=== PATIENT | male | born 1990 | race American Indian/Alaskan Native ===

== ENCOUNTER 2018-04-17 18:19 | Emergency (ER) | payer OTHER ==
[2018-04-17 18:26] VITALS: BP 148/85
--- NOTE | 2018-04-17 18:39 | Emergency Department Report ---
Blank Doc - Documentation Documentation: penile buring with urination. 2 days ago.
[2018-04-17 19:31] LABS: Bilirubin,Urine NEG (Negative); Blood,Urine NEG (Negative); Color,Urine Yellow (Yellow); Hyaline Casts,Urine 1 /LPF; Mucus,Urine 3+ /HPF; Protein,Urine <15 mg/dL mg/dL (Negative)
--- NOTE | 2018-04-17 21:11 | Emergency Department Report ---
Chief Complaint: Urogenital-Male Stated Complaint: BURNING WHILE HAVING SEX Time Seen by Provider: 04/17/18 18:36 - HPI History of Present Illness: This is a 27-year-old male presents ED today stating that his girlfriend was here earlier complaining of hot sensation was having sex. Patient presents today in the he was like to be evaluated. Patient denies any fever, chills, nausea, vomiting, abdominal pain, pelvic pain, penile discharge, dysuria, penile pain or scrotal swelling or pain. - ROS Review of Systems: As noted in HPI - Exam Vital Signs: Vital Signs 04/17/18 18:24 Temperature 98.0 F Pulse Rate 89 Respiratory 16 Rate Blood Pressure 148/85 [Right] O2 Sat by Pulse 96 Oximetry Physical Exam: GENERAL: Alert and oriented x3, no apparent distress, Normal Gait, atraumatic. HEAD: Head is normocephalic and a-traumatic. ABDOMEN: No organomegaly was noted,Positive bowel sounds, soft, and non- distended. . Nontender to palpation on all Quadrants, NO CVA tenderness. SKIN: Warm and dry, No lesions, No ulceration or induration present. MSE screening note: Focused history and physical exam performed. Due to findings the following was ordered: ED Medical Decision Making - Medical Decision Making 27-year-old male presents with burning sensation. Urinalysis showed no indication of a bacterial infection, wbc's. Urinalysis clean, urine shows no signs of infection. Due to the fact that the patient's girlfriend had no symptoms and he has the symptoms and likely would've an STD is very very small. I discussed the patient due to see his girlfriend symptoms hot sensation during segs there is not a call to have an ACT. I discussed signs and symptoms of STD to the patient. Patient states she understands instructions. Patient will be sent home on prophylaxis antibiotics for a UTI. Suspicion if he has any of these symptoms such as dysuria, hematuria, penile discharge or lesion or pain to return to the ED or follow-up with [facility] for STD screening. ED Disposition for MSE Clinical Impression: Screen for STD (sexually transmitted disease) Disposition: -01 TO HOME OR SELFCARE Is pt being admited?: No Does the pt Need Aspirin: No Condition: Stable Instructions: Safe Sex (ED), Sexually Transmitted Diseases (ED) Additional Instructions: Make sure to follow up with the primary care physician as discussed. If you have any worsening symptoms or develop new symptoms please return to ED immediately. Prescriptions: Ciprofloxacin HCl [Ciprofloxacin TAB] 500 mg PO Q12HR #14 tab Referrals: [facility] [Outside] - 3-5 Days [facility] [Outside] - 3-5 Days Forms: Work/School Release Form(ED) Time of Disposition: 21:12
== END 2018-04-17 21:15 | disposition home or self-care (01) ==
LOC: ED 18:19
DX: Z20.2 Contact with and (suspected) exposure to infections with a predominantly sexual mode of transmission (principal)
CPT/HCPCS: 81001; 99283